=== PATIENT | male | born 1940 | race African-American/Black ===

== ENCOUNTER 2021-09-03 09:36 | Observation (INO) ==
[2021-09-03 10:23] LABS: Basophils % 0.3 % (0.0-0.8); Eosinophils # 0.1 10*3/uL (0.0-0.87); Eosinophils % 1.8 % (0.00-10.9); Hematocrit 32.3 VOL% (42.0-52.0); Hemoglobin 10.7 GM/DL (14.0-18.0); Immature Granulocytes % 0.4 %; Immature Granulocytes Absolute 0.03 #; Lymphocytes # 1.1 10*3/uL (1.4-4.0); Lymphocytes % 14.3 % (21.2-54.2); Mean Corpuscular HGB Conc 33.1 GM/DL (32-36); Mean Corpuscular Volume 96.1 FL (87-102); Mean Platelet Volume 9.9 FL (9.6-12.0); Monocytes % 5.3 % (1.7-12.7); Neutrophils % 77.9 % (38.7-73.9); Platelet Count 295 T/CUMM (130-400); Red Blood Count 3.36 MC/CUMM (3.8-5.5); White Blood Count 7.8 T/CUMM (4-12)
[2021-09-03 10:31] LABS: Albumin 2.6 G/DL (3.4-5.0); Bilirubin,Total 1.9 MG/DL (0.20-1.00); Calcium 8.4 MG/DL (8.5-10.1); Osmolality,Calculated 277.5 MOS/KG (273-304); Potassium 3.8 MMOL/L (3.5-5.1); Total Protein 7.8 G/DL (6.4-8.2)
[2021-09-03] MEDS ORDERED: methylPREDNISolone SOD SUC 125 MG/2 ML VIAL IV STA (11:39)
[2021-09-03] MEDS ORDERED: LEVOFLOXACIN INJ 750 MG in PREMIX 1 EACH IV STA (11:44)
[2021-09-03] MEDS ORDERED: ALBUTEROL NEB SOLN 5 MG/ML 20 ML/BOTTLE CONT NEB SCH (12:00)
[2021-09-03 12:37] LABS: Bacteria,Urine Occasional /HPF (Few); Bilirubin,Urine Negative (Negative); Blood, Urine Small mg/dL (Negative); Glucose,Urine (UA) Negative (Negative); Ketones,Urine Negative (Negative); Mucus,Urine Occasional /LPF (Occasional); Nitrite,Urine Negative (Negative); Protein,Urine Negative; RBC,Urine 5 /HPF (0-4); Squamous Epithelial Cell,Urine Occasional /HPF (0-10); Urine Appearance CLEAR (Clear); Urine Color Yellow (Yellow); Urine Specific Gravity 1.008 (1.001-1.035); Urine Urobilinogen < 2.0 EU/DL (<2.0)
[2021-09-03 12:41] LABS: INR 3.8; PT Patient Result 38.6 SECS (10.5-12.0); Partial Thromboplastin Time 51.1 SECS (23.8-32.1)
[2021-09-03] MEDS ORDERED: DEXTROSE 50% 25 GM/50 ML SYRINGE IV PRN (13:12)
[2021-09-03] MEDS ORDERED: DOCUSATE SODIUM 100 MG CAPSULE PO PRN (13:12)
[2021-09-03] MEDS ORDERED: ONDANSETRON 4 MG/2 ML VIAL IV PRN (13:12)
[2021-09-03] MEDS ORDERED: ACETAMINOPHEN 325 MG TABLET PO PRN (13:12)
[2021-09-03] MEDS ORDERED: GLUCAGON 1 MG VIAL IM PRN (13:12)
[2021-09-03] MEDS: cefTRIAXone 1,000 MG in SODIUM CHLORIDE 0.9% 100 ML IV SCH (14:15)
[2021-09-03] MEDS: methylPREDNISolone SOD SUC 40 MG/1 ML VIAL IV SCH (14:23)
[2021-09-03] MEDS: BENZONATATE 100 MG CAPSULE PO SCH ×2 (15:30→23:04)
[2021-09-03] MEDS: INSULIN LISPRO 100 UNIT/ML SUBCUT SCH (17:36)
[2021-09-03] MEDS: ALBUTEROL/IPRATROPIUM 3 ML NEB RESP TX SCH (19:46)
[2021-09-03] MEDS ORDERED: WARFARIN 2.5 MG TABLET PO SCH (21:00)
[2021-09-03] MEDS: ALBUTEROL 2 MG TABLET PO SCH (23:03)
[2021-09-03] MEDS: guaiFENesin/DM ER 600-30 MG TABLET PO SCH (23:04)
[2021-09-03] MEDS: MONTELUKAST 10 MG TABLET PO SCH (23:04)
[2021-09-04] MEDS: ALBUTEROL/IPRATROPIUM 3 ML NEB RESP TX SCH ×4 (00:10→20:08)
[2021-09-04] MEDS: methylPREDNISolone SOD SUC 40 MG/1 ML VIAL IV SCH ×2 (03:03→21:24)
[2021-09-04] MEDS: INSULIN LISPRO 100 UNIT/ML SUBCUT SCH ×5 (03:03→21:22)
[2021-09-04 05:19] LABS: Basophils % 0.2 % (0.0-0.8); Hematocrit 29.9 VOL% (42.0-52.0); Hemoglobin 9.9 GM/DL (14.0-18.0); Immature Granulocytes % 0.5 %; Immature Granulocytes Absolute 0.03 #; Lymphocytes # 0.7 10*3/uL (1.4-4.0); Lymphocytes % 10.7 % (21.2-54.2); Mean Corpuscular HGB Conc 33.1 GM/DL (32-36); Mean Corpuscular Volume 96.5 FL (87-102); Mean Platelet Volume 9.7 FL (9.6-12.0); Monocytes % 1.3 % (1.7-12.7); Neutrophils % 87.3 % (38.7-73.9); Platelet Count 292 T/CUMM (130-400); Red Cell Distribution Width 14.7 % (9.3-17.3); White Blood Count 6.4 T/CUMM (4-12)
[2021-09-04 05:29] LABS: PT Patient Result 40.4 SECS (10.5-12.0)
[2021-09-04] MEDS: LEVOTHYROXINE 25 MCG TABLET PO SCH (05:55)
[2021-09-04 05:58] LABS: Risk Ratio 2.34; Thyroid Stimulating Hormone 0.666 uIU/ml (0.358-3.74); VLDL Cholesterol 8.6 MG/DL
[2021-09-04 06:04] LABS: Calcium 8.5 MG/DL (8.5-10.1); Osmolality,Calculated 279.7 MOS/KG (273-304); Potassium 4.5 MMOL/L (3.5-5.1)
[2021-09-04] MEDS: AZITHROMYCIN 250 MG TABLET PO SCH (10:10)
[2021-09-04] MEDS: LORATADINE 10 MG TABLET PO SCH (10:28)
[2021-09-04] MEDS: amLODIPine 10 MG TABLET PO SCH (10:28)
[2021-09-04] MEDS: guaiFENesin/DM ER 600-30 MG TABLET PO SCH ×2 (10:28→21:24)
[2021-09-04] MEDS: ASPIRIN EC 81 MG TABLET PO SCH (10:28)
[2021-09-04] MEDS: FLUTICASONE 50 MCG NASAL SPRAY 16 GM BOTTLE BOTH NARES SCH (10:28)
[2021-09-04] MEDS: TAMSULOSIN 0.4 MG CAPSULE PO SCH (10:28)
[2021-09-04] MEDS: FINASTERIDE 5 MG TABLET PO SCH (10:29)
[2021-09-04] MEDS: ALBUTEROL 2 MG TABLET PO SCH ×2 (10:29→21:27)
[2021-09-04] MEDS: BENZONATATE 100 MG CAPSULE PO SCH ×3 (10:30→21:24)
[2021-09-04] MEDS: cefTRIAXone 1,000 MG in SODIUM CHLORIDE 0.9% 100 ML IV SCH (10:31)
[2021-09-04] MEDS ORDERED: SIMVASTATIN 10 MG TABLET PO SCH (21:00)
[2021-09-04] MEDS: MONTELUKAST 10 MG TABLET PO SCH (21:24)
[2021-09-05] MEDS: ALBUTEROL/IPRATROPIUM 3 ML NEB RESP TX SCH ×2 (01:50→07:45)
[2021-09-05] MEDS: LEVOTHYROXINE 25 MCG TABLET PO SCH (05:36)
[2021-09-05 06:07] LABS: INR 4.2
[2021-09-05 06:08] LABS: Basophils % 0.1 % (0.0-0.8); Hematocrit 30.8 VOL% (42.0-52.0); Hemoglobin 10.3 GM/DL (14.0-18.0); Immature Granulocytes % 0.6 %; Immature Granulocytes Absolute 0.08 #; Lymphocytes # 0.7 10*3/uL (1.4-4.0); Lymphocytes % 5.8 % (21.2-54.2); Mean Corpuscular HGB Conc 33.4 GM/DL (32-36); Mean Platelet Volume 9.6 FL (9.6-12.0); Monocytes % 1.4 % (1.7-12.7); Neutrophils % 92.1 % (38.7-73.9); Platelet Count 321 T/CUMM (130-400); Red Blood Count 3.21 MC/CUMM (3.8-5.5); Red Cell Distribution Width 14.9 % (9.3-17.3); White Blood Count 12.8 T/CUMM (4-12)
[2021-09-05 06:18] LABS: PT Patient Result 42.2 SECS (10.5-12.0)
[2021-09-05 06:34] LABS: Calcium 8.9 MG/DL (8.5-10.1); Osmolality,Calculated 280.8 MOS/KG (273-304); Potassium 4.6 MMOL/L (3.5-5.1)
[2021-09-05 06:36] LABS: Hypochromia 1+; Lymphocytes 1 % (20-55); Microcytosis 1+; Platelet Estimate Adequate; Segmented Neutrophils 98 % (50-85); Total Cells Counted 100
[2021-09-05] MEDS: INSULIN LISPRO 100 UNIT/ML SUBCUT SCH ×2 (08:00→11:36)
[2021-09-05] MEDS: guaiFENesin/DM ER 600-30 MG TABLET PO SCH (09:01)
[2021-09-05] MEDS: AZITHROMYCIN 250 MG TABLET PO SCH (09:01)
[2021-09-05] MEDS: ALBUTEROL 2 MG TABLET PO SCH (09:01)
[2021-09-05] MEDS: FINASTERIDE 5 MG TABLET PO SCH (09:01)
[2021-09-05] MEDS: methylPREDNISolone SOD SUC 40 MG/1 ML VIAL IV SCH (09:01)
[2021-09-05] MEDS: TAMSULOSIN 0.4 MG CAPSULE PO SCH (09:01)
[2021-09-05] MEDS: ASPIRIN EC 81 MG TABLET PO SCH (09:01)
[2021-09-05] MEDS: LORATADINE 10 MG TABLET PO SCH (09:01)
[2021-09-05] MEDS: amLODIPine 10 MG TABLET PO SCH (09:01)
[2021-09-05] MEDS: BENZONATATE 100 MG CAPSULE PO SCH (09:02)
[2021-09-05] MEDS: cefTRIAXone 1,000 MG in SODIUM CHLORIDE 0.9% 100 ML IV SCH (09:04)
[2021-09-05] MEDS: FLUTICASONE 50 MCG NASAL SPRAY 16 GM BOTTLE BOTH NARES SCH (09:05)
[2021-09-05 12:01] VITALS: BP 120/60
== END 2021-09-05 14:43 | disposition home health service (06) ==
LOC: N.ED 09:36 → N.EDINP 13:12 → SUATTDRO 13:12 → INTOOBSV 13:12 → N.5E 19:33
PROVIDERS: ADMIT Internal Medicine; ATTEND Internal Medicine